=== PATIENT | female | born 1995 | race Caucasian/White ===

== ENCOUNTER 2019-07-11 20:38 | Emergency (ER) | payer SELFPAY ==
[~2019-07-11] VITALS: Ht 157.5 cm; Wt 79.8 kg
[2019-07-11 20:40] VITALS: BP 120/70
--- NOTE | 2019-07-11 20:40 | NUR ---
TO BED # 06 AMBULATORY
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
--- NOTE | 2019-07-11 21:26 | NUR ---
Dr. Jernigan examining patient.
[2019-07-11] MEDS ORDERED: IBUPROFEN 800 MG TAB PO ONE (21:30)
--- NOTE | 2019-07-11 21:46 | NUR ---
PT RETURN FROM RAD
[2019-07-11 21:58] VITALS: BP 120/70
== END 2019-07-11 21:58 | disposition home or self-care (01) ==
LOC: MED 20:38
DX: S39.012A Strain of muscle, fascia and tendon of lower back, initial encounter (principal); V49.49XA Driver injured in collision with other motor vehicles in traffic accident, initial encounter; Y93.89 Activity, other specified; Y92.89 Other specified places as the place of occurrence of the external cause; Y99.8 Other external cause status
CPT/HCPCS: 72100; 99283

== ENCOUNTER 2020-04-09 06:50 | Emergency (ER) | payer OTHER ==
[~2020-04-09] VITALS: Ht 157.5 cm; Wt 72.6 kg
[2020-04-09 06:52] VITALS: BP 117/60
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
[2020-04-09 07:53] VITALS: BP 117/60
--- NOTE | 2020-04-09 07:53 | NUR ---
Patient discharged with v/s stable. Written and verbal after care instructions given and explained. Patient alert, oriented and verbalized understanding of instructions. Ambulatory with steady gait. All questions addressed prior to discharge. ID band removed. Patient advised to follow up with PMD. Rx of ZOFRAN, LYRCA, OXYCODONE given. Patient educated on indication of medication including possible reaction and side effects. Opportunity to ask questions provided and answered.
== END 2020-04-09 07:53 | disposition home or self-care (01) ==
LOC: MED 06:50
DX: G89.18 Other acute postprocedural pain (principal); L76.32 Postprocedural hematoma of skin and subcutaneous tissue following other procedure; Z48.00 Encounter for change or removal of nonsurgical wound dressing; Z98.82 Breast implant status; Z90.3 Acquired absence of stomach [part of]
CPT/HCPCS: 99283